=== PATIENT | female | born 1945 | race Caucasian/White ===

== ENCOUNTER 2017-04-19 12:17 | Emergency (ER) | payer MEDICARE, MEDICAID ==
[2017-04-19] MEDS ORDERED: Acetaminophen 650 MG Suppository ONE (12:45)
[2017-04-19 13:08] LABS: #Lymphocytes 0.5 thou/uL (1.20-3.40); #Monocytes 0.4 thou/uL (0.11-0.59); %Basophils 0.4 % (0.0-1.0); %Eosinophils 0.5 % (0.0-10.0); %Lymphocytes 6.9 % (21.0-51.0); %Monocytes 5.7 % (0.0-10.0); Hematocrit 34.1 % (36.0-47.0); Mean Platelet Volume 7.5 fL (7.4-10.4); Red Blood Cell (RBC) Count 3.67 mill/uL (4.20-5.40); White Blood Cell (WBC) Count 6.9 thou/uL (4.8-10.8)
[2017-04-19 13:13] LABS: Bilirubin Negative (Negative); Blood, Urine Moderate (Negative); Glucose, Urine (Dipstick) Negative (Negative); Ketone, Urine Negative (Negative); Nitrite Positive (Negative); Protein, Urine (Dipstick) 30 mg/dL (Neg-Trace); Urobilinogen 0.2 mg/dL (0.2-1.0)
[2017-04-19 13:22] LABS: Lactic Acid - Sepsis 0.8 mmol/L (0.5-2.2)
[2017-04-19 13:23] LABS: Bacteria/HPF 4+ HPF (None Seen); Hyaline Casts/LPF 4-6 HYALINE CAST LPF (0-3 Hyaline); Squamous Epithelial 0-3 HPF (0-3)
[2017-04-19 13:26] LABS: Anion Gap 13 mmol/L (10-20); BUN (Urea Nitrogen) 32 mg/dL (9.8-20.1); CK (CPK) 57 U/L (29-168); Calc. Creatinine Clearance 0 mL/min (70-130); Calcium 9.3 mg/dL (7.8-10.44); Carbon Dioxide 29 mmol/L (23-31); Chloride 106 mmol/L (98-107); Estimated GFR-MDRD 49
[2017-04-19 13:32] LABS: Troponin I Less than 0.010 ng/mL (< 0.028)
[2017-04-19] MEDS ORDERED: Iopamidol 370 76% 50 ML VIAL FS ONE (13:53)
[2017-04-19] MEDS ORDERED: Iopamidol 370 76% 100 ML VIAL ONE (13:54)
--- NOTE | 2017-04-19 14:01 | RAD ---
FRONTAL VIEW CHEST: Date: 04/19/17 COMPARISON: 10/09/16. INDICATION: Dyspnea. FINDINGS: There is enlargement of the cardiac silhouette. Interstitial opacities are seen bilaterally. No effu rob or discrete pneumothorax. Vascular calcification and osseous degenerative change present. IMPRESSION: Prominent cardiac silhouette and interstitial opacities likely relating to edema. Recommend clinical correlation, and imaging follow-up may be obtained for continued evaluation. POS: JAIRO
--- NOTE | 2017-04-19 14:55 | CT ---
CT ABDOMEN AND PELVIS WITH IV CONTRAST: DATE: 04/19/17. HISTORY: Left lower quadrant abdominal pain and left leg pain. COMPARISON: 07/07/16 and 10/10/16. FINDINGS: There is fluid in the distal esophagus which may represent gastroesophageal reflux. Again noted is a small hiatal hernia. There is a suggestion of soft tissue density partially imaged in the left hilar region which could b e related to enlarged lymph nodes. There are increased interstitial densities seen at each lung base also seen on prior studies some of which are present on the prior study, and findings may be related to areas of scarring as well as a telectasis. Post cholecystectomy changes are seen. There is a stable subcentimeter hypodense lesion in the right hepatic lobe. The liver is otherwise normal in appearance. Nonobstructing bilateral renal calculi are again seen. However, there is now a calculus within the left renal pelvis with the calculus extending to the level of the left UPJ. This calculus measures approximately 17 mm in length x 7 mm in diameter. There is resultant mild left hydronephrosis. No right ureteral calculus is seen on this exam. Pancreas and bilateral adrenal glands demonstrate a normal CT appearance. There is thickening involving the posterior wall of the urinary bladder. The additional parnell of th e urinary bladder are normal in thickness. Neoplastic process such as transitional cell cannot be e ntirely excluded. Again, this was not present on the prior exams. Further evaluation with direct v isualization is suggested. There are ventral abdominal wall hernias in a superumbilical location. Two of these hernias do cont ain a small portion of the parnell of the transverse colon with only a very small portion of the colon extending through these defects. No abnormal thickening or adjacent inflammatory stranding is pres ent. Just superior to the 2 separate ventral abdominal wall hernias involving the transverse colon, there is also a small fat-containing ventral abdominal wall hernia. Minimal vascular calcifications are seen in the proximal abdominal aorta. There is no free fluid, fluid collection, or lymphadenopathy in the abdomen or pelvis. No other int erval change. IMPRESSION: 1. Suggested thickening involving a portion of the posterior wall of the urinary bladder. Direct v isualization is recommended to exclude neoplastic process. 2. Supraumbilical ventral abdominal wall hernias. There are 3 separate small ventral abdominal wal l hernias, 2 of which contain a portion of the anterior wall of the transverse colon with more super iorly located ventral abdominal wall hernia only composed of a small amount of fat. There is no inf lammatory stranding or bowel wall thickening involving the areas of herniation of the colon. 3. Small hiatal hernia with findings likely related to gastroesophageal reflux. 4. Atelectasis superimposed on chronic bibasilar lung changes. 5. Cholecystectomy. 6. Stable subcentimeter hypodense lesion right hepatic lobe. 7. Partially obstructing left ureteral calculus with the calculus seen in the region of the left re nal pelvis and extending into the region of the left ureteropelvic junction resulting in mild left h ydronephrosis. 8. Nonobstructing bilateral renal calculi. 9. Stable compression fracture T12 vertebral body with mild compression fractures of the T11 and L1 vertebral bodies with the degree of height loss similar to the prior exam. POS: JAIRO
[2017-04-19] MEDS ORDERED: Meropenem 1 GM VIAL ONE (16:52)
[2017-04-19] MEDS ORDERED: Ondansetron HCl/PF 4 MG/2 ML Vial ONE (19:31)
== END 2017-04-20 00:15 ==
LOC: ERS 12:17
DX: N12 Tubulo-interstitial nephritis, not specified as acute or chronic (principal); N13.9 Obstructive and reflux uropathy, unspecified; E78.5 Hyperlipidemia, unspecified; G80.9 Cerebral palsy, unspecified; I11.0 Hypertensive heart disease with heart failure; I50.9 Heart failure, unspecified; I25.10 Atherosclerotic heart disease of native coronary artery without angina pectoris; E11.9 Type 2 diabetes mellitus without complications; K21.9 Gastro-esophageal reflux disease without esophagitis; M81.0 Age-related osteoporosis without current pathological fracture; J45.909 Unspecified asthma, uncomplicated; F41.9 Anxiety disorder, unspecified; F32.9 Major depressive disorder, single episode, unspecified; Z79.4 Long term (current) use of insulin; Z79.899 Other long term (current) drug therapy
CPT/HCPCS: 51701; 71010; 74177; 80048; 81003; 81015; 82550; 82553; 83605; 84484; 85025; 87040; 87077; 87086; 87149; 87186; 93005; 96361; 96365; 96374; A4353; J2185; J2405